=== PATIENT | male | born 1955 | race Caucasian/White ===

== ENCOUNTER 2018-06-05 13:08 | Observation (INO) | payer MEDICARE ==
--- NOTE | 2018-06-05 13:40 | ED ---
General Adult HPI - General Chief complaint: Shortness of Breath Stated complaint: SOB Time Seen by Provider: 06/05/18 13:15 Source: EMS, RN notes reviewed Mode of arrival: EMS - History of Present Illness Initial comments: This a 63-year-old male who presents to the emergency department complaining of difficulty breathing. Patient states he noted this today after he went shopping for groceries into the house per patient states now is resting he does not feel short of breath. Patient went to see his primary medical care doctor when he had the shortness of breath and she sent him in by ambulance. Patient denies any chest pain or palpitations. Patient denies any recent fever chills or cough. Patient denies any lightheadedness dizziness or near syncopal episode. Patient denies abdominal pain. Patient's nausea vomiting diarrhea. Patient denies any swelling to legs or calf tenderness. - Related Data Home Medications Medication Instructions Recorded Confirmed Aspirin EC [Ecotrin] 325 mg PO DAILY 06/05/18 06/05/18 Atorvastatin [Lipitor] 40 mg PO DAILY 06/05/18 06/05/18 Lisinopril [Zestril] 20 mg PO DAILY 06/05/18 06/05/18 Multivitamins, Thera [Multivitamin 1 tab PO DAILY 06/05/18 06/05/18 (formulary)] [place]-3 Fatty Acids/Fish Oil [Fish 1 cap PO DAILY 06/05/18 06/05/18 Oil 1,000 mg Softgel] Allergies Allergy/AdvReac Type Severity Reaction Status Date / Time naproxen Allergy Anaphylaxis Verified 06/05/18 13:32 Review of Systems ROS Statement: Those systems with pertinent positive or pertinent negative responses have been documented in the HPI. ROS Other: All systems not noted in ROS Statement are negative. Past Medical History Past Medical History: Hyperlipidemia, Hypertension History of Any Multi-Drug Resistant Organisms: None Reported Additional Past Surgical History / Comment(s): oral Past Psychological History: No Psychological Hx Reported Smoking Status: Current some day smoker Past Alcohol Use History: None Reported Past Drug Use History: None Reported General Exam - General Exam Comments Initial Comments: GENERAL: Patient is well-developed and well-nourished. Patient is nontoxic and well- hydrated and is in distress. ENT: Neck is soft and supple. No significant lymphadenopathy is noted. Oropharynx is clear. Moist mucous membranes. Neck has full range of motion without eliciting any pain. EYES: The sclera were anicteric and conjunctiva were pink and moist. Extraocular movements were intact and pupils were equal round and reactive to light. Eyelids were unremarkable. PULMONARY: Unlabored respirations. Good breath sounds bilaterally. No audible rales rhonchi or wheezing was noted. CARDIOVASCULAR: There is a regular rate and rhythm without any murmurs gallops or rubs. ABDOMEN: Soft and nontender with normal bowel sounds. No palpable organomegaly was noted. There is no palpable pulsatile mass. SKIN: Skin is clear with no lesions or rashes and otherwise unremarkable. NEUROLOGIC: Patient is alert and oriented x3. Cranial nerves II through XII are grossly intact. Motor and sensory are also intact. Normal speech, volume and content. Symmetrical smile. MUSCULOSKELETAL: Normal extremities with adequate strength and full range of motion. No lower extremity swelling or edema. No calf tenderness. LYMPHATICS: No significant lymphadenopathy is noted PSYCHIATRIC: Normal psychiatric evaluation. Course Vital Signs 06/05/18 06/05/18 13:17 15:27 Temperature 98.3 F Pulse Rate 73 68 Respiratory 23 20 Rate Blood Pressure 168/79 149/88 O2 Sat by Pulse 96 96 Oximetry Medical Decision Making - Medical Decision Making EKG shows normal sinus rhythm at 67 bpm TN interval is 156 QRS is 88 QT interval 392 QTC is 414. Patient's EKG shows no ST segment elevation or depression. Chest x-ray shows no acute abnormalities. I spoke with Dr. Ace Bello's and when he was in her office he was complaining of someone sitting on his chest. Patient did not tell us that when he came in initially. I spoke with Dr. Epstein he agreed to admit the patient admitted the patient I wrote admitting orders I consult cardiology - Lab Data Result diagrams: 06/05/18 14:03 06/05/18 14:03 Lab Results 06/05/18 06/05/18 06/05/18 Range/Units 14:03 14:03 14:03 WBC 7.7 (3.8-10.6) k/uL RBC 5.64 (4.30-5.90) m/uL Hgb 16.3 (13.0-17.5) gm/dL Hct 51.1 (39.0-53.0) % MCV 90.5 (80.0-100.0) fL MCH 28.9 (25.0-35.0) pg MCHC 31.9 (31.0-37.0) g/dL RDW 13.8 (11.5-15.5) % Plt Count 226 (150-450) k/uL Neutrophils % 73 % Lymphocytes % 19 % Monocytes % 6 % Eosinophils % 2 % Basophils % 1 % Neutrophils # 5.6 (1.3-7.7) k/uL Lymphocytes # 1.4 (1.0-4.8) k/uL Monocytes # 0.4 (0-1.0) k/uL Eosinophils # 0.1 (0-0.7) k/uL Basophils # 0.1 (0-0.2) k/uL PT 9.9 (9.0-12.0) sec INR 0.9 (<1.2) APTT 27.0 (22.0-30.0) sec D-Dimer 0.39 (<0.60) mg/L FEU Sodium 141 (137-145) mmol/L Potassium 4.4 (3.5-5.1) mmol/L Chloride 111 H (98-107) mmol/L Carbon Dioxide 20 L (22-30) mmol/L Anion Gap 10 mmol/L BUN 18 (9-20) mg/dL Creatinine 0.76 (0.66-1.25) mg/dL Est GFR (CKD-EPI)AfAm >90 (>60 ml/min/1.73 sqM) Est GFR (CKD-EPI)NonAf >90 (>60 ml/min/1.73 sqM) Glucose 102 H (74-99) mg/dL Calcium 9.2 (8.4-10.2) mg/dL Magnesium 2.0 (1.6-2.3) mg/dL Total Bilirubin 0.6 (0.2-1.3) mg/dL AST 36 (17-59) U/L ALT 48 (21-72) U/L Alkaline Phosphatase 61 (38-126) U/L Troponin I (0.000-0.034) ng/mL Total Protein 7.3 (6.3-8.2) g/dL Albumin 4.3 (3.5-5.0) g/dL 06/05/18 Range/Units 14:03 WBC (3.8-10.6) k/uL RBC (4.30-5.90) m/uL Hgb (13.0-17.5) gm/dL Hct (39.0-53.0) % MCV (80.0-100.0) fL MCH (25.0-35.0) pg MCHC (31.0-37.0) g/dL RDW (11.5-15.5) % Plt Count (150-450) k/uL Neutrophils % % Lymphocytes % % Monocytes % % Eosinophils % % Basophils % % Neutrophils # (1.3-7.7) k/uL Lymphocytes # (1.0-4.8) k/uL Monocytes # (0-1.0) k/uL Eosinophils # (0-0.7) k/uL Basophils # (0-0.2) k/uL PT (9.0-12.0) sec INR (<1.2) APTT (22.0-30.0) sec D-Dimer (<0.60) mg/L FEU Sodium (137-145) mmol/L Potassium (3.5-5.1) mmol/L Chloride (98-107) mmol/L Carbon Dioxide (22-30) mmol/L Anion Gap mmol/L BUN (9-20) mg/dL Creatinine (0.66-1.25) mg/dL Est GFR (CKD-EPI)AfAm (>60 ml/min/1.73 sqM) Est GFR (CKD-EPI)NonAf (>60 ml/min/1.73 sqM) Glucose (74-99) mg/dL Calcium (8.4-10.2) mg/dL Magnesium (1.6-2.3) mg/dL Total Bilirubin (0.2-1.3) mg/dL AST (17-59) U/L ALT (21-72) U/L Alkaline Phosphatase (38-126) U/L Troponin I <0.012 (0.000-0.034) ng/mL Total Protein (6.3-8.2) g/dL Albumin (3.5-5.0) g/dL Disposition Clinical Impression: Dyspnea, Chest pain Disposition: ADMITTED IP TO THIS HOSP Referrals: Leda Bello MD [Primary Care Provider] - 1-2 days Time of Disposition: 15:32
--- NOTE | 2018-06-05 14:12 | XR ---
EXAMINATION TYPE: XR chest 2V DATE OF EXAM: 06/05/2018 COMPARISON: None HISTORY: 63-year-old male difficulty breathing and shortness of breath TECHNIQUE: PA and lateral views FINDINGS: The cardiomediastinal silhouette, aorta, and pulmonary vasculature are within normal limits. Lungs an d pleural spaces are clear. IMPRESSION: No acute cardiopulmonary process.
[2018-06-05 14:28] LABS: Basophils # (A) 0.1 k/uL (0-0.2); Basophils % (A) 1 %; Eosinophils # (A) 0.1 k/uL (0-0.7); Eosinophils % (A) 2 %; HCT 51.1 % (39.0-53.0); HGB 16.3 gm/dL (13.0-17.5); Lymphocytes # (A) 1.4 k/uL (1.0-4.8); Lymphocytes % (A) 19 %; MCH 28.9 pg (25.0-35.0); MCHC 31.9 g/dL (31.0-37.0); MCV 90.5 fL (80.0-100.0); Mean Platelet Volume 7.4; Monocytes # (A) 0.4 k/uL (0-1.0); Monocytes % (A) 6 %; Neutrophils # (A) 5.6 k/uL (1.3-7.7); Neutrophils % (A) 73 %; Platelet Count 226 k/uL (150-450); RBC 5.64 m/uL (4.30-5.90); RDW 13.8 % (11.5-15.5); WBC 7.7 k/uL (3.8-10.6)
[2018-06-05 14:32] LABS: ALT 48 U/L (21-72); AST 36 U/L (17-59); Albumin 4.3 g/dL (3.5-5.0); Alkaline Phosphatase 61 U/L (38-126); Anion Gap 10 mmol/L; Blood Urea Nitrogen 18 mg/dL (9-20); Calcium 9.2 mg/dL (8.4-10.2); Carbon Dioxide 20 mmol/L (22-30); Chloride 111 mmol/L (98-107); Glucose 102 mg/dL (74-99); Sodium 141 mmol/L (137-145); Total Bilirubin 0.6 mg/dL (0.2-1.3); Total Protein 7.3 g/dL (6.3-8.2)
[2018-06-05 14:37] LABS: D-Dimer 0.39 mg/L FEU (<0.60); INR 0.9 (<1.2); Prothrombin Time 9.9 sec (9.0-12.0)
[2018-06-05 14:44] LABS: Potassium 4.4 mmol/L (3.5-5.1)
[2018-06-05] MEDS ORDERED: ASPIRIN 81 MG PO STA (15:33)
[2018-06-05] MEDS ORDERED: NITROGLYCERIN SL TABS 0.4 MG TAB SUBLINGUAL PRN (15:33)
[2018-06-05] MEDS: NITROGLYCERIN OINT 1 INCH/GM PACKET TOPICAL SCH (18:40)
--- NOTE | 2018-06-05 19:50 | P.HPIM ---
History of Present Illness H&P Date: 06/05/18 Chief Complaint: Dyspnea Patient is a 63-year-old male with a known history of hypertension, hyperlipidemia and nicotine addiction was brought to the ER due to difficulty in breathing. Patient went to see his primary care physician and has worsened short of breath at the clinic. EMS was called by her PCPs office. Patient follows with Dr. Bello as an outpatient. Patient was also complaining of chest pressure along with shortness of breath. Patient says that he met his friend on Saturday who left her found her to have influenza A. Patient has been having worsening shortness of breath and also exertional dyspnea when he was going up and down the states. Patient has been sleeping downstairs for the last 2 days. Patient also having muscle aches and back pain and knee pain. Patient could not sleep last night. Patient went to grocery shop and was winded after he was carrying 2 bags. Patient called his family and told him to go to his physician. Denied any fever or chills. No headache or dizziness or lightheadedness. No abdominal pain. No nausea vomiting or diarrhea. No dysuria or hematuria. Patient does have cough without sputum production. No leg swelling. Patient was given breathing treatments enroute to the hospital by EMS. Patient says that his breathing is slightly better now. Chest x-ray showed no acute cardio pulmonary process EKG showed normal sinus with left axis deviation. Review of Systems Constitutional: Patient denies any fever or chills . Denies weakness malaise. Abdomen: Patient denied nausea vomiting and diarrhea and abdominal pain. Cardiovascular: Patient denies any chest pain or short of breath no palpitations. Respiratory: Cough without sputum and does have shortness of breath Neurologic: Patient denied any numbness or tingling headache. Musculoskeletal: Patient denies any complaints of joint swelling or deformity. Skin: Negative Psychiatric: Negative Endocrine: No heat or cold intolerance. No recent weight gain. Genitourinary: No dysuria or hematuria. All other 14 point ROS negative except the above Past Medical History Past Medical History: Hyperlipidemia, Hypertension History of Any Multi-Drug Resistant Organisms: None Reported Additional Past Surgical History / Comment(s): oral Past Psychological History: No Psychological Hx Reported Smoking Status: Current some day smoker Past Alcohol Use History: None Reported Past Drug Use History: None Reported Medications and Allergies Home Medications Medication Instructions Recorded Confirmed Type Aspirin EC [Ecotrin] 325 mg PO DAILY 06/05/18 06/05/18 History Atorvastatin [Lipitor] 40 mg PO DAILY 06/05/18 06/05/18 History Lisinopril [Zestril] 20 mg PO DAILY 06/05/18 06/05/18 History Multivitamins, Thera [Multivitamin 1 tab PO DAILY 06/05/18 06/05/18 History (formulary)] [place]-3 Fatty Acids/Fish Oil [Fish 1 cap PO DAILY 06/05/18 06/05/18 History Oil 1,000 mg Softgel] Allergies Allergy/AdvReac Type Severity Reaction Status Date / Time naproxen Allergy Anaphylaxis Verified 06/05/18 19:49 Physical Exam Vitals: Vital Signs Temp Pulse Resp BP Pulse Ox 06/05/18 18:33 97.8 F 64 16 150/107 95 06/05/18 17:30 68 18 154/100 96 06/05/18 15:27 68 20 149/88 96 06/05/18 13:17 98.3 F 73 23 168/79 96 Intake and Output 06/05/18 06/05/18 06/05/18 06:59 14:59 22:59 Other: Weight 92.986 kg PHYSICAL EXAMINATION: Patient is lying in the bed comfortably, no acute distress, awake alert and oriented. Anxious.. HEENT: Normocephalic. Neck is supple. Pupils reactive. Nostrils clear. Oral cavity is moist. Ears reveal no drainage. Neck reveals no JVD, carotid bruits, or thyromegaly. CHEST EXAMINATION: Trachea is central. Symmetrical expansion. Bilateral scattered rhonchi. No crackles. Minimal wheezing.. CARDIAC: Normal S1, S2 with no gallops. No murmurs ABDOMEN: Soft. Bowel sounds normal. No organomegaly. No abdominal bruits. Extremities: reveal no edema. No clubbing or cyanosis Neurologically awake, alert, oriented x3 with well-coordinated movements. No focal deficits noted Skin: No rash or skin lesions. Psychiatric: Coperative. Nonsuicidal Musculoskeletal: No joint swelling or deformity. Normal range of motion. Results CBC & Chem 7: 06/05/18 14:03 06/05/18 14:03 Labs: Abnormal Lab Results - Last 24 Hours (Table) 06/05/18 Range/Units 14:03 Chloride 111 H (98-107) mmol/L Carbon Dioxide 20 L (22-30) mmol/L Glucose 102 H (74-99) mg/dL Thrombosis Risk Factor Assmnt - DVT/VTE Prophylaxis DVT/VTE Prophylaxis: Pharmacologic Prophylaxis ordered Assessment and Plan Assessment: Chest pressure with exertional short of breath. Rule out ACS Acute bronchospasm likely due to acute viral illness. Hypertension Hyperlipidemia Nicotine addiction DVT prophylaxis next and obesity Plan: Patient will be continued on telemetry monitoring. Serial EKGs and troponins. Patient will be started on DuoNeb's and continue with his home medications. will check influenza PCR. Cardiology was consulted. Further recommendations based on the clinical course. Time with Patient: Greater than 30
[2018-06-05] MEDS: LISINOPRIL 20 MG TAB PO SCH (19:51)
[2018-06-05] MEDS: IPRATROPIUM-ALBUTEROL 3 ML NEB INHALATION SCH (20:07)
[2018-06-06] MEDS: NITROGLYCERIN OINT 1 INCH/GM PACKET TOPICAL SCH ×2 (00:09→04:59)
[2018-06-06] MEDS: HEPARIN SODIUM,PORCINE 5,000 UNIT/ML 1 ML VIAL SQ SCH ×2 (00:10→09:50)
[2018-06-06 06:56] LABS: Cholesterol 121 mg/dL (<200); HDL Cholesterol 25 mg/dL (40-60); LDL Cholesterol,Calculated 78 mg/dL (0-99); Triglycerides 92 mg/dL (<150)
[2018-06-06 08:01] VITALS: RESP 18
[2018-06-06] MEDS: IPRATROPIUM-ALBUTEROL 3 ML NEB INHALATION SCH ×2 (08:21→12:09)
[2018-06-06] MEDS ORDERED: NON-FORMULARY DRUG (Omega-3 Fatty Acids/Fish Oil [Fish Oil 1,000 Mg Softgel] 1 CAP) PO SCH (09:00)
[2018-06-06] MEDS ORDERED: ATORVASTATIN 40 MG TAB PO SCH (09:00)
[2018-06-06] MEDS ORDERED: ASPIRIN 325 MG TAB PO SCH (09:00)
--- NOTE | 2018-06-06 11:21 | P.CRDCN ---
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 We have been asked to see him in consultation for chest pain. He states approximately 1-week ago he had flu like symptoms with cough, congestion, fatigue and body aches. He stated home and rested started feeling better Saturday of this week. Saturday he went about his normal activities and he went to the grocery store while he was unloading his groceries he became acutely short of breath and fatigued. He denies having any pain in his chest during this episode, but the sh ortness of breath was significant and persistent despite rest. He initially went in to see his PCP and was sent to the hospital via ambulance for further evaluation of his symptoms. He is seen and examined resting comfortably lying flat in bed in no acute distress. HEENT denies any symptoms of chest discomfort, ongoing shortness of breath, dizziness, palpitations, nausea, vomiting or diaphoresis. EKG reveals sinus mechanism heart rate 67, left axis deviation and poor R-wave progression. Chest x-ray is negative for acute cardiopulmonary process. Laboratory data reviewed, WBC 7.7, hemoglobin 16.3, platelets 226, d-dimer 0.39, sodium 141, potassium 4.4, creatinine 0.76, magnesium 2.0, cardiac enzymes negative 3, NT proBNP 27, LDL 78 HDL 25. Current cardiac medications include aspirin 325 mg daily, atorvastatin 40 mg daily and lisinopril 20 mg daily. At the time of my exam: CONSTITUTIONAL: Denies fever. Denies chills. EYES: Denies blurred vision. Denies vision changes. Denies eye pain. EARS, NOSE, MOUTH & THROAT: Denies headache. Denies sore throat. Denies ear pain. CARDIOVASCULAR: Denies chest pain. Denies shortness of breath. Denies orthopnea. Denies PND. Denies palpitations. RESPIRATORY: Denies cough. GASTROINTESTINAL: Denies abdominal pain. Denies diarrhea. Denies constipation. Denies nausea. Denies vomiting. MUSCULOSKELETAL: Denies myalgias. INTEGUMENTARY: Denies pruitis. Denies rash. NEUROLOGIC: Denies numbness. Denies tingling. Denies weakness. PSYCHIATRIC: Denies anxiety. Denies depression. ENDOCRINE: Denies fatigue. Denies weight change. Denies polydipsia. Denies polyurina. GENITOURINARY: Denies burning, hematuria or urgency with micturation. HEMATOLOGIC: Denies history of anemia. Denies bleeding. Blood pressure 127/78 heart rate 62 afebrile maintaining oxygen saturation on room air GENERAL: This is a 63-year-old male in no apparent distress at the time of my examination. HEENT: Head is atraumatic, normocephalic. Pupils are equal, round. Sclerae anicteric. Conjunctivae are clear. Mucous membranes of the mouth are moist. Neck is supple. There is no jugular venous distention. No carotid bruit is heard. LUNGS: Clear to auscultation no wheezes, rales or rhonchi. No chest wall tenderness is noted on palpation or with deep breathing. HEART: Regular rate and rhythm without murmurs, rubs or gallops. S1 and S2 heard. ABDOMEN: Soft, nontender. Bowel sounds are heard. No organomegaly noted. EXTREMITIES: No evidence of peripheral edema and no calf tenderness noted. VASCULAR: Radial and dorsalis pedis pulses palpated, no evidence of clubbing. NEUROLOGIC: Patient is awake, alert and oriented x3. ASSESSMENT Shortness of breath with no chest discomfort, atypical for angina. An acute coronary event has been ruled out. Hypertension Dyslipidemia Chronic nicotine dependence Former history of cocaine and alcohol abuse, has been clean for 11 years. PLAN Acute coronary event has been ruled out. NT proBNP has been requested and is normal. Obtain 2-D echocardiogram and Doppler study to assess cardiac structure and function. Perform stress echocardiogram to assess for stress-induced ischemia. If abnormal will consider coronary angiography. If diagnostic testing is normal he is stable from a cardiac perspective. Smoking cessation recommended. Thank you kindly for this consultation. Nurse Practitioner note has been reviewed, I agree with a documented findings and plan of care. Patient was seen and examined. Past Medical History Past Medical History: Hyperlipidemia, Hypertension History of Any Multi-Drug Resistant Organisms: None Reported Additional Past Surgical History / Comment(s): oral Past Anesthesia/Blood Transfusion Reactions: No Reported Reaction Smoking Status: Current some day smoker Medications and Allergies Home Medications Medication Instructions Recorded Confirmed Type Aspirin EC [Ecotrin] 325 mg PO DAILY 06/05/18 06/05/18 History Atorvastatin [Lipitor] 40 mg PO DAILY 06/05/18 06/05/18 History Lisinopril [Zestril] 20 mg PO DAILY 06/05/18 06/05/18 History Multivitamins, Thera [Multivitamin 1 tab PO DAILY 06/05/18 06/05/18 History (formulary)] [place]-3 Fatty Acids/Fish Oil [Fish 1 cap PO DAILY 06/05/18 06/05/18 History Oil 1,000 mg Softgel] Allergies Allergy/AdvReac Type Severity Reaction Status Date / Time naproxen Allergy Anaphylaxis Verified 06/05/18 19:49 Physical Exam Vitals: Vital Signs Temp Pulse Pulse Resp BP BP Pulse Ox 06/06/18 03:47 97.7 F 71 16 107/52 97 06/06/18 03:26 18 06/06/18 00:00 18 06/05/18 23:23 97.5 F L 81 18 124/71 93 L 06/05/18 20:24 64 06/05/18 20:10 68 06/05/18 20:00 97.6 F 63 18 157/89 95 06/05/18 19:42 94 L 06/05/18 18:33 97.8 F 64 16 150/107 95 06/05/18 17:30 68 18 154/100 96 06/05/18 15:27 68 20 149/88 96 06/05/18 13:17 98.3 F 73 23 168/79 96 Intake and Output 06/05/18 06/06/18 06/06/18 22:59 06:59 14:59 Other: # Voids 1 Results 06/05/18 14:03 06/05/18 14:03 Cardiac Enzymes 06/05/18 06/05/18 06/05/18 Range/Units 14:03 14:03 20:15 AST 36 (17-59) U/L Troponin I <0.012 <0.012 (0.000-0.034) ng/mL 06/06/18 Range/Units 01:44 AST (17-59) U/L Troponin I <0.012 (0.000-0.034) ng/mL Coagulation 06/05/18 Range/Units 14:03 PT 9.9 (9.0-12.0) sec APTT 27.0 (22.0-30.0) sec Lipids 06/06/18 Range/Units 05:49 Triglycerides 92 (<150) mg/dL Cholesterol 121 (<200) mg/dL HDL Cholesterol 25 L (40-60) mg/dL CBC 06/05/18 Range/Units 14:03 WBC 7.7 (3.8-10.6) k/uL RBC 5.64 (4.30-5.90) m/uL Hgb 16.3 (13.0-17.5) gm/dL Hct 51.1 (39.0-53.0) % Plt Count 226 (150-450) k/uL Comprehensive Metabolic Panel 06/05/18 Range/Units 14:03 Sodium 141 (137-145) mmol/L Potassium 4.4 (3.5-5.1) mmol/L Chloride 111 H (98-107) mmol/L Carbon Dioxide 20 L (22-30) mmol/L BUN 18 (9-20) mg/dL Creatinine 0.76 (0.66-1.25) mg/dL Glucose 102 H (74-99) mg/dL Calcium 9.2 (8.4-10.2) mg/dL AST 36 (17-59) U/L ALT 48 (21-72) U/L Alkaline Phosphatase 61 (38-126) U/L Total Protein 7.3 (6.3-8.2) g/dL Albumin 4.3 (3.5-5.0) g/dL Current Medications Generic Name Dose Route Start Last Admin Trade Name Freq PRN Reason Stop Dose Admin Albuterol/Ipratropium 3 ml 06/05/18 20:00 06/05/18 20:07 Duoneb 0.5 Mg-3 Mg/3 Ml Soln INHALATION 3 ml RT-QID [facility] Administration Aspirin 325 mg 06/06/18 09:00 Aspirin PO DAILY [facility] Atorvastatin Calcium 40 mg 06/06/18 09:00 Lipitor PO DAILY [facility] Heparin Sodium (Porcine) 5,000 unit 06/06/18 00:00 06/06/18 00:10 Heparin SQ Not Given Q8HR [facility] Lisinopril 20 mg 06/05/18 19:45 06/05/18 19:51 Zestril PO Not Given DAILY [facility] Multivitamins 1 each 06/06/18 12:00 Theragran PO DAILY@1200 [facility] Nitroglycerin 1 inch 06/05/18 18:00 06/06/18 04:59 Nitro-Bid Oint TOPICAL Not Given Q6HR [facility] Nitroglycerin 0.4 mg 06/05/18 15:33 Nitrostat SUBLINGUAL Q5M PRN Chest Pain Intake and Output 06/05/18 06/06/18 06/06/18 22:59 06:59 14:59 Other: # Voids 1 06/05/18 14:03 06/05/18 14:03
[2018-06-06 11:54] VITALS: BP 122/76; PULSE 68; TEMP 97.8
[2018-06-06] MEDS ORDERED: MULTIVITAMINS, THERA 1 EACH TAB PO SCH (12:00)
[2018-06-06] MEDS: LISINOPRIL 20 MG TAB PO SCH (12:44)
--- NOTE | 2018-06-06 14:36 | P.DS ---
Providers Date of admission: 06/05/18 15:34 Attending physician: Renetta Epstein Consults: 06/05/18 15:33 Consult Physician Urgent Consulting Provider: [facility] Consult Reason/Comments: Chest pain Do you want consulting provider notified?: Yes Primary care physician: Leda Bello [facility] Course: 63-year-old gentleman came in with compensative shortness of breath does have smoking history and mild chest pressure like sensation atypical chest pain rule out a concurrent syndromes patient underwent stress test if that's negative patient will be discharged today and his shortness of breath was attributed to acute viral illness and bronchospasm and patient will be discharged on albuterol on as-needed basis will not require any antibiotics patient is presently not coughing no wheezing on exam today. Chest pain resolved. After the stress us if cleared by cardiology patient will be discharged today. PHYSICAL EXAMINATION: GENERAL: The patient is alert and oriented x3, not in any acute distress. Well developed, well nourished. HEENT: Pupils are round and equally reacting to light. EOMI. No scleral icterus. No conjunctival pallor. Normocephalic, atraumatic. No pharyngeal erythema. No thyromegaly. CARDIOVASCULAR: S1 and S2 present. No murmurs, rubs, or gallops. PULMONARY: Chest is clear to auscultation, no wheezing or crackles. ABDOMEN: Soft, nontender, nondistended, normoactive bowel sounds. No palpable organomegaly. MUSCULOSKELETAL: No joint swelling or deformity. EXTREMITIES: No cyanosis, clubbing, or pedal edema. NEUROLOGICAL: Gross neurological examination did not reveal any focal deficits. SKIN: No rashes. Please refer to dictation of H&P from yesterday from Dr. Epstein for further details Plan - Discharge Summary New Discharge Prescriptions: New Albuterol Inhaler [Ventolin Hfa Inhaler] 1 - 2 puff INHALATION Q6HR PRN #1 inhaler PRN Reason: Shortness Of Breath Or Wheezing No Action Multivitamins, Thera [Multivitamin (formulary)] 1 tab PO DAILY Atorvastatin [Lipitor] 40 mg PO DAILY Lisinopril [Zestril] 20 mg PO DAILY Aspirin EC [Ecotrin] 325 mg PO DAILY [place]-3 Fatty Acids/Fish Oil [Fish Oil 1,000 mg Softgel] 1 cap PO DAILY Discharge Medication List Aspirin EC [Ecotrin] 325 mg PO DAILY 06/05/18 [History] Atorvastatin [Lipitor] 40 mg PO DAILY 06/05/18 [History] Lisinopril [Zestril] 20 mg PO DAILY 06/05/18 [History] Multivitamins, Thera [Multivitamin (formulary)] 1 tab PO DAILY 06/05/18 [History] [place]-3 Fatty Acids/Fish Oil [Fish Oil 1,000 mg Softgel] 1 cap PO DAILY 06/05/18 [History] Albuterol Inhaler [Ventolin Hfa Inhaler] 1 - 2 puff INHALATION Q6HR PRN #1 inhaler 06/06/18 [Rx] Follow up Appointment(s)/Referral(s): Leda Bello MD [Primary Care Provider] - 3 Days
--- NOTE | 2018-06-06 18:31 | ECHOF ---
Referral Reason:sob MEASUREMENTS -------- HEIGHT: 165.1 cm WEIGHT: 93.0 kg BP: 127/78 RVIDd: 3.4 cm (< 3.3) IVSd: 1.2 cm (0.6 - 1.1) LVIDd: 3.7 cm (3.9 - 5.3) LVPWd: 1.2 cm (0.6 - 1.1) IVSs: 1.7 cm LVIDs: 2.6 cm LVPWs: 1.9 cm LA Diam: 3.5 cm (2.7 - 3.8) LAESV Index (A-L): 20.20 ml/m Ao Diam: 3.3 cm (2.0 - 3.7) AV Cusp: 1.9 cm (1.5 - 2.6) MV EXCURSION: 14.230 mm (> 18.000) MV EF SLOPE: 86 mm/s (70 - 150) EPSS: 0.3 cm MV E Jorge L: 0.69 m/s MV DecT: 324 ms MV A Jorge L: 0.82 m/s MV E/A Ratio: 0.85 FINDINGS -------- Sinus rhythm. This was a technically good study. The left ventricular size is normal. There is borderline concentric left ventricular hypertrophy. Overall left ventricular systolic function is normal with, an EF between 60 - 65 %. The right ventricle is mildly enlarged. Normal LA size by volume 22+/-6 ml/m2. The right atrium is normal in size. The aortic valve is trileaflet and appears structurally normal. The mitral valve is normal. Mild tricuspid regurgitation present. Right ventricular systolic pressure is normal at < 35 mmHg. Trace/mild (physiologic) pulmonic regurgitation. The aortic root size is normal. Normal inferior vena cava with normal inspiratory collapse consistent with estimated right atrial pre ssure of 5 mmHg. There is no pericardial effusion. CONCLUSIONS -------- 1. Sinus rhythm. 2. This was a technically good study. 3. The left ventricular size is normal. 4. There is borderline concentric left ventricular hypertrophy. 5. Overall left ventricular systolic function is normal with, an EF between 60 - 65 %. 6. The right ventricle is mildly enlarged. 7. Normal LA size by volume 22+/-6 ml/m2. 8. The right atrium is normal in size. 9. The aortic valve is trileaflet and appears structurally normal. 10. The mitral valve is normal. 11. Mild tricuspid regurgitation present. 12. Right ventricular systolic pressure is normal at < 35 mmHg. 13. Trace/mild (physiologic) pulmonic regurgitation. 14. The aortic root size is normal. 15. Normal inferior vena cava with normal inspiratory collapse consistent with estimated right atrial pressure of 5 mmHg. 16. There is no pericardial effusion. ADVERTISING SUPERVISOR: Caryl Jasmine RDCS
--- NOTE | 2018-06-07 13:39 | ECHOS ---
STRESS ECHOCARDIOGRAM INDICATIONS: Chest pain. MEDICATIONS: Multivitamin, Lipitor, Zestril. Ecotrin, fish oil. BASELINE HEART RATE: 57 BASELINE BLOOD PRESSURE: 127/73 MAXIMUM HEART RATE: 148 MAXIMUM BLOOD PRESSURE: 186/84 85% MPHR: 132 100% MPHR: 155 METS: 7.9 MAXIMUM STAGE REACHED: 3 TOTAL EXERCISE TIME: 6:30 CLINICAL INFORMATION: Patient was exercised for a total period of 6 minutes and 30 seconds. A peak heart rate of 138 was achieved. Maximum blood pressure of 186/84 mmHg was noted. Test was terminated because patient got short of breath. The resting EKG shows normal sinus rhythm with normal [place] interval and QRS duration and normal ST-T waves. No ST-segment depression suggestive of ischemia is noted. The baseline echocardiographic images reveal normal left ventricular chamber size with normal left ventricular systolic function. In the immediate post-exercise period normal increase in the wall thickness and contractility is noted. FINAL IMPRESSION: This stress echocardiographic study is negative for stress-induced ischemia. EKG portion of the stress test is not suggestive of ischemia. Patient's exercise tolerance is average. MMODL / IJN: [id number] /
== END 2018-06-06 15:20 | disposition home or self-care (01) ==
LOC: EC 13:08 → 1SOBS 15:34
PROVIDERS: ADMIT Internal Medicine; ATTEND Internal Medicine
DX: J98.01 Acute bronchospasm (principal); B34.9 Viral infection, unspecified; E78.5 Hyperlipidemia, unspecified; M25.569 Pain in unspecified knee; I10 Essential (primary) hypertension; F17.200 Nicotine dependence, unspecified, uncomplicated; E66.9 Obesity, unspecified; Z68.34 Body mass index [BMI] 34.0-34.9, adult; Z79.82 Long term (current) use of aspirin; Z79.899 Other long term (current) drug therapy; Z88.8 Allergy status to other drugs, medicaments and biological substances
CPT/HCPCS: 99285; 36415; 94640 ×2; 94760; 94762; 93005; 93306; 93351; 85379; 83880; 80061; 80053; 83735; 84484 ×2; 85025; 85610; 85730; 87502; 71046; G0378 ×2

== ENCOUNTER 2018-07-31 12:10 | Day surgery (SDC) | payer MEDICARE ==
[2018-07-28 13:45] VITALS: BMI 34.3
[~2018-07-31 12:10] MED LIST: LACTATED RINGERS 1,000 ML IV SCH; LIDOCAINE 1% 20 ML VIAL (10MG/ML) FOR IV START INTRADERMA PRN
[2018-07-31 12:25] VITALS: RESP 16; TEMP 97.2
[2018-07-31] MEDS ORDERED: PROPOFOL 10 MG/ML 20 ML VIAL IV ONE (12:44)
--- NOTE | 2018-07-31 13:06 | P.OP ---
Date of Procedure: 07/31/18 Preoperative Diagnosis: Screening Postoperative Diagnosis: Sigmoid colon polyp at approximately 35 cm Significant diverticulosis Procedure(s) Performed: Colonoscopy with snare polypectomy Surgeon: Yesica Resendiz Pathology: other (Colon polyp) Condition: stable Disposition: same day Indications for Procedure: 63-year-old male presents for an elective screening colonoscopy. Risks, benefits and alternatives were provided to the patient. He did provide consent prior to attending the endoscopy suite. Operative Findings: Large amount of diverticulosis throughout the colon, most significant in the sigmoid and descending colon Colon polyp at the sigmoid colon at approximately 35 cm Description of Procedure: The patient was brought into the endoscopy suite and placed in the left lateral decubitus position and adequate sedation was achieved using conscious sedation. A digital rectal exam was then performed and internal hemorrhoids were palpated. An endoscope was then placed in the rectum and advanced to the level of the cecum as identified by landmarks, including the appendiceal orifice and the ileocecal valve. The prep was good. The colonoscope was then slowly withdrawn, examining for any mucosal abnormalities. The cecum, ascending, transverse, descending and sigmoid colon were visualized adequately. There was a significant amount of diverticulosis noted scattered throughout the colon. It was most significant and largest in the sigmoid and descending colon. There were no large neoplastic masses. A polyp was noted at the 35 cm fabrice in the sigmoid colon. There polypectomy was performed and hemostasis was maintained. There were no inflammatory lesions throughout the colon. Retroflexion was performed in the rectum and internal hemorrhoids were visible. Excess air was removed. The colonoscope was withdrawn and the procedure terminated. The pa tient was then transferred to the postanesthesia care unit in stable condition. Repeat colonoscopy should be performed in 5 years.
[2018-07-31 13:41] VITALS: BP 144/72; PULSE 70
--- NOTE | 2018-08-04 08:04 | CDI ---
Date: 08/04/18 CDS/Analysis Intern Name: Justina Taveras Phone: If any questions, call Eusebia Ricketts Dialysis Tech at [phone] Patient Name: Jose Juan Antoine Admit Date: 07/31/18 Discharge Date: 07/31/18 ATTENTION: The [facility] Coding Staff appreciate your assistance in clarifying documentation. Please respond to the clarification below the line at the bottom and electronically sign. The [facility] Coding staff will review the response and follow-up if needed. Please note: Queries are made part of the Legal Health Record. If you have any questions, please contact the Dialysis Tech. Dear Dr. Resendiz, Please provide clarification as to what method of polypectomy was performed. Please clarify if snare, hot or cold biopsy forceps were use to remove the polyps. Thank you for your kind consideration. Snare polypectomy was performed MTDD
== END 2018-07-31 14:02 | disposition home or self-care (01) ==
LOC: ORWHC2ENDO 12:10
PROVIDERS: ATTEND Surgery
DX: Z12.11 Encounter for screening for malignant neoplasm of colon (principal); D12.5 Benign neoplasm of sigmoid colon; K57.90 Diverticulosis of intestine, part unspecified, without perforation or abscess without bleeding; K64.8 Other hemorrhoids; I10 Essential (primary) hypertension; Z87.891 Personal history of nicotine dependence; E78.00 Pure hypercholesterolemia, unspecified; Z79.82 Long term (current) use of aspirin; Z79.899 Other long term (current) drug therapy; Z88.6 Allergy status to analgesic agent
CPT/HCPCS: 88305; 45385; J2704

== ENCOUNTER → 2021-12-04 | Outpatient (CLI) | payer MEDICARE ==
--- NOTE | 2021-12-04 11:47 | XR ---
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 Soft tissu e swelling noted over the dorsum of the hand. IMPRESSION: No fracture or dislocation is evident.
== END | disposition home or self-care (01) ==
LOC: RADXRYALE 11:26
PROVIDERS: ATTEND Internal Medicine
DX: S67.21XA Crushing injury of right hand, initial encounter (principal); X58.XXXA Exposure to other specified factors, initial encounter

== ENCOUNTER 2023-10-18 11:15 | Day surgery (SDC) | payer MEDICARE ==
[2023-10-17 11:57] VITALS: BMI 33.3
[~2023-10-18 11:15] MED LIST changes: -LACTATED RINGERS 1,000 ML IV SCH; +LIDOCAINE 1% (10MG/ML) FOR IV START INTRADERMA PRN; -LIDOCAINE 1% 20 ML VIAL (10MG/ML) FOR IV START INTRADERMA PRN
[2023-10-18] MEDS: IV FLUID CONTINUATION 1,000 ML IV ONE (13:23)
[2023-10-18 13:26] VITALS: RESP 16; TEMP 97.1
[2023-10-18] MEDS: LACTATED RINGERS 1,000 ML IV SCH (13:40)
[2023-10-18] MEDS ORDERED: PROPOFOL 10 MG/ML 20 ML VIAL IV ONE (14:07)
--- NOTE | 2023-10-18 14:29 | P.PCN ---
Date of Procedure: 10/18/23 Procedure(s) Performed: BRIEF HISTORY: Patient is a 68-year-old pleasant white male scheduled for an elective colonoscopy as a part of screening for colorectal neoplasia. PROCEDURE PERFORMED: Colonoscopy. PREOPERATIVE DIAGNOSIS: Screening for colon cancer. IV sedation per Anesthesia. PROCEDURE: After informed consent was obtained, the patient, was brought into the endoscopy unit. IV sedation was administered by Anesthesia under continuous monitoring. Digital rectal examination was normal. Initially the Olympus CF-160 flexible video colonoscope was then inserted in the rectum, gradually advanced into the cecum without any difficulty. Careful examination was performed as the scope was gradually being withdrawn. Ileocecal valve and the appendiceal orifice were visualized and appeared normal. Prep was excellent. Mucosa of the cecum, ascending colon, transverse colon, descending colon, sigmoid colon, and rectum appeared normal. Moderate sigmoid diverticulosis retroflexion was performed in the rectum and no lesions were seen. The patient tolerated the procedure well. IMPRESSION: Normal-appearing colon from rectum to cecum with no evidence of colorectal neoplasia Moderate sigmoid diverticulosis. RECOMMENDATIONS: Findings of this examination were discussed with the patient as well as his family. He was advised to have a repeat screening colonoscopy in 10 years..
[2023-10-18 14:49] VITALS: BP 108/68; PULSE 70
== END 2023-10-18 15:16 | disposition home or self-care (01) ==
LOC: ORWHC2ENDO 11:15
PROVIDERS: ATTEND Internal Medicine Gastroenterology
DX: Z12.11 Encounter for screening for malignant neoplasm of colon (principal); K57.30 Diverticulosis of large intestine without perforation or abscess without bleeding; I10 Essential (primary) hypertension; E78.5 Hyperlipidemia, unspecified; H91.90 Unspecified hearing loss, unspecified ear; Z79.82 Long term (current) use of aspirin; Z79.899 Other long term (current) drug therapy; Z88.6 Allergy status to analgesic agent